=== PATIENT | female | born 1960 | race African-American/Black ===

== ENCOUNTER 2023-09-22 21:26 | Emergency (ER) | payer SELFPAY ==
[~2023-09-22] VITALS: Ht 165.1 cm; Wt 75.0 kg
[2023-09-22] MEDS ORDERED: Ondansetron 4 MG/2 ML VIAL IV ONE (22:00)
[2023-09-22] MEDS ORDERED: NS 1,000 ML IV ONE (22:00)
[2023-09-22] MEDS ORDERED: Morphine 4 MG/ML VIAL IV PRN (22:00)
[2023-09-22 22:10] LABS: BASO # 0.1 K/mm3 (0.0-0.2); BASO % 0.7 % (0.0-2.0); EOS % 0.6 % (0.0-4.0); GRAN # 5.1 K/mm3 (1.4-6.5); GRAN % 70.3 % (42.2-75.2); HEMATOCRIT 42.9 % (37.0-47.0); HEMOGLOBIN 14.3 g/dl (12.5-16.0); LYMPH # 1.5 K/mm3 (1.2-3.4); MEAN CELL VOLUME 92 fl (80.0-100.0); MEAN CORPUSCULAR HEMOGLOBIN 31 pg (27-31); MEAN CORPUSCULAR HGB CONC 33 g/dl (33.0-37.0); MEAN PLATELET VOLUME 11.3 fl (7.4-10.4); MONO # 0.6 K/mm3 (0.1-0.6); MONO % 8.1 % (1.7-9.3); PLATELET COUNT 160 K/mm3 (130-400); RED BLOOD COUNT 4.67 M/mm3 (4.10-5.30); REDCELL DISTRIBUTION WIDTH-CV 13.3 % (11.5-14.5)
[2023-09-22 22:20] LABS: ALBUMIN 3.7 g/dL (3.4-4.8); BILIRUBIN,TOTAL 0.6 mg/dL (0.2-1.2); CALCIUM 9.5 mg/dL (8.4-10.2); CREATININE, serum 0.88 mg/dL (0.57-1.11); POTASSIUM 3.2 mEq/L (3.5-4.5); TOTAL PROTEIN 7.1 g/dl (6.2-8.1)
[2023-09-22] MEDS ORDERED: NS 50 ML IV SCH (23:11)
[2023-09-22] MEDS ORDERED: Iohexol 300 - 100 ML VIAL IV ONE (23:11)
[2023-09-23 01:00] VITALS: BP 143/66; PULSE 76
== END 2023-09-23 01:00 | disposition home or self-care (01) ==
LOC: COL.ER 21:26
PROVIDERS: Personal Emergency Response Attendant
DX: S32.010A Wedge compression fracture of first lumbar vertebra, initial encounter for closed fracture (principal); S20.213A Contusion of bilateral front wall of thorax, initial encounter; V49.9XXA Car occupant (driver) (passenger) injured in unspecified traffic accident, initial encounter; Y92.410 Unspecified street and highway as the place of occurrence of the external cause
CPT/HCPCS: J2270; J2405; J7030; Q9967